=== PATIENT | male | born 1975 | race Caucasian/White ===

== ENCOUNTER 2024-01-28 15:27 | Outpatient (AMB) | payer OTHER, SELFPAY ==
[2024-01-28 15:36] VITALS: BP 152/102; PULSE 77; O2SAT 97; BMI 30.2
--- NOTE | 2024-01-28 15:36 | HO.NEPHOV ---
HPI HPI Comments History of Present Illness Details I had the privilege of seeing Hay in consultation for labile hypertension. He is known to have hypertension for well over 10 years. He has been on metoprolol for a while but his blood pressure remained uncontrolled and as a result hydrochlorothiazide was added. It did not make much of a difference needing increasing hydrochlorothiazide to 25 mg daily and addition of losartan 25 mg daily. His blood pressure continues to be over 150 to 160s systolic readings. His serum creatinine has been around 1.2-1.3. He had a 24 hour urine collection done in 2021 which revealed normal creatinine clearance. He has strong family history of hypertension. He denies using any cocaine. He does not have any coronary artery disease, congestive heart failure, carotid stenosis, CVA, PAD or RAFAELA. He has no history of retinopathy, proteinuria or left ventricular hypertrophy. He claims to be compliant with medication intake. He has not a smoker. He does not have any chest pain, headache, visual disturbances, shortness of breath, paroxysmal nocturnal dyspnea, orthopnea, pedal edema or urinary symptoms. He has no history of hypokalemia, uncontrolled thyroid disorders, obstructive sleep apnea, renal function abnormality, hypercalcemia. His weight has been stable. He has not taken any antihypertensive medications for the last 3 days. He has dyslipidemia and is on statins. He has elevated liver enzymes and is being investigated. He is concerned about his uncontrolled hypertension. [facility] Medical History (Updated 01/28/24 @ 21:17 by Reji Horner MD) Hypertension Colon polyps Elevated liver enzymes Surgical History H/O colonoscopy Social History Alcohol intake: current Patient Tobacco Use Status: Never used Tobacco Vital Signs 01/28/24 15:36 Height 5 ft 7 in Weight 193 lb BMI 30.2 BP 152/102 H Blood Pressure Location Lt brachial Position Sitting Pulse 77 Pulse Source Pulse Oximeter Pulse Oximetry (%) 97 Oxygen Delivery Method Room Air Physical Exam Vital Signs: Last Vital Signs Pulse 77 01/28/24 15:36 BP 152/102 H 01/28/24 15:36 Pulse Ox 97 01/28/24 15:36 Oxygen Delivery Method Room Air 01/28/24 15:36 BMI result Body Mass Index 30.2 Const General: comfortable and no acute distress Orientation/consciousness: patient oriented x3 HEENT Head: Yes normocephalic Mouth: Normal oral and palatal mucosa present Eyes EOM: EOMs intact bilaterally Neck Neck: Yes supple Resp Auscultation: clear to auscultation bilaterally Cardio Jugular venous distension: no JVD Rate: regular rate GI Palpation (GI): Soft to palpation Auscultation: normal bowel sounds General: Yes no CVA tenderness Back/Spine/Pelvis Back: no CVA tenderness Skin General skin exam: no rashes or lesions noted Neuro General: patient oriented x3 and moves all extremities Extrem General: Yes no pedal edema Assessment & Plan Assessment & Plan (1) Hypertension: Code(s): I10 - Essential (primary) hypertension Qualifiers: Hypertension type: primary hypertension Qualified Code(s): I10 - Essential (primary) hypertension Plan Hay most likely has primary hypertension. His blood pressure remains uncontrolled. He has not taken any medications for 3 days. His systolic readings have been running between 150-160. His serum creatinine has been between 1.2-1.3 with a normal creatinine clearance. I started him on losartan 50 mg daily. I ordered renin, aldosterone, aldosterone renin ratio, TSH, cortisol, metanephrine along with a Doppler of renal arteries. I encouraged him to cut back on his alcohol intake. He needs to minimize sodium in the diet. He could continue to do exercise. He should remain well hydrated. I encouraged him not to have excessive nonsteroidal anti-inflammatories while being on angiotensin receptor mckenzie. He is going to be seen in couple of weeks in the office for optimization of medications based on evolving data. Answered all questions. Follow-up appointment given. Orders: Orders Renin Today I10 - Essential (primary) hypertension Aldost/Renin Today I10 - Essential (primary) hypertension Metanephrines, Plasma Today I10 - Essential (primary) hypertension Cortisol Random Today I10 - Essential (primary) hypertension US renal BI Today I10 - Essential (primary) hypertension US renal doppler Today I10 - Essential (primary) hypertension Creatinine Today I10 - Essential (primary) hypertension Blood Urea Nitrogen Today I10 - Essential (primary) hypertension Electrolytes Today I10 - Essential (primary) hypertension Aldosterone Today I10 - Essential (primary) hypertension TSH reflex Free T4 Today I10 - Essential (primary) hypertension Medications: New losartan 50 mg PO DAILY 30 days 30 tabs 3RF Coding Level of Care Code New Pt Level 4 (49653) Diagnoses Primary hypertension I10 Hypertension type: primary hypertension Results Reviewed Nephrology Results: No Data to Display
== END 2024-01-28 16:21 | disposition home or self-care (01) ==
LOC: HO.HKAS 15:27
PROVIDERS: PCP Family Medicine; Visit Provider Internal Medicine Nephrology
DX: I10 Essential (primary) hypertension (principal)
CPT/HCPCS: 99204

== ENCOUNTER → 2024-01-28 15:27 | Outpatient (BNVA) | payer OTHER, SELFPAY | PROVIDERS: PCP Family Medicine; Visit Provider Internal Medicine Nephrology | DX: I10 Essential (primary) hypertension (principal) | CPT/HCPCS: 99202 ==

== ENCOUNTER 2024-02-11 10:34 | Outpatient (AMB) | payer OTHER, SELFPAY ==
--- NOTE | 2024-02-11 10:42 | HO.NEPHOV_ITS ---
HPI HPI Comments History of Present Illness Details I had the privilege of seeing Hay in consultation for labile hypertension. He is known to have hypertension for well over 10 years. He has been on metoprolol for a while but his blood pressure remained uncontrolled and as a result hydrochlorothiazide was added. It did not make much of a difference needing increasing hydrochlorothiazide to 25 mg daily and addition of losartan 25 mg daily. His blood pressure continues to be over 150 to 160s systolic readings. His serum creatinine has been around 1.2-1.3. He had a 24 hour urine collection done in 2021 which revealed normal creatinine clearance. He has strong family history of hypertension. He denies using any cocaine. He does not have any coronary artery disease, congestive heart failure, carotid stenosis, CVA, PAD or RAFAELA. He has no history of retinopathy, proteinuria or left ventricular hypertrophy. He claims to be compliant with medication intake. He has not a smoker. He does not have any chest pain, headache, visual disturbances, shortness of breath, paroxysmal nocturnal dyspnea, orthopnea, pedal edema or urinary symptoms. He has no history of hypokalemia, uncontrolled thyroid disorders, obstructive sleep apnea, renal function abnormality, hypercalcemia. His weight has been stable. He has not taken any antihypertensive medications for the last 3 days. He has dyslipidemia and is on statins. He has elevated liver enzymes and is being investigated. His BP is better after initiation of losartan. His A1c is 6.0 [facility] Medical History (Updated 01/28/24 @ 21:17 by Reji Horner MD) Hypertension Colon polyps Elevated liver enzymes Surgical History H/O colonoscopy Social History Alcohol intake: current Patient Tobacco Use Status: Never used Tobacco Vital Signs 02/11/24 10:43 Height 5 ft 7 in Weight 196 lb 2 oz BMI 30.7 BP 124/98 H Blood Pressure Location Lt brachial Position Sitting Pulse 72 Pulse Source Pulse Oximeter Pulse Oximetry (%) 97 Oxygen Delivery Method Room Air Physical Exam Vital Signs: Last Vital Signs Pulse 72 02/11/24 10:43 BP 124/98 H 02/11/24 10:43 Pulse Ox 97 02/11/24 10:43 Oxygen Delivery Method Room Air 04/04/24 10:43 BMI result Body Mass Index 30.7 Const General: comfortable and no acute distress Orientation/consciousness: patient oriented x3 HEENT Head: Yes normocephalic Mouth: Normal oral and palatal mucosa present Eyes EOM: EOMs intact bilaterally Neck Neck: Yes supple Resp Auscultation: clear to auscultation bilaterally Cardio Jugular venous distension: no JVD Rate: regular rate GI Palpation (GI): Soft to palpation Auscultation: normal bowel sounds General: Yes no CVA tenderness Back/Spine/Pelvis Back: no CVA tenderness Skin General skin exam: no rashes or lesions noted Neuro General: patient oriented x3 and moves all extremities Extrem General: Yes no pedal edema Assessment & Plan Assessment & Plan (1) Hypertension: Code(s): I10 - Essential (primary) hypertension Qualifiers: Hypertension type: primary hypertension Qualified Code(s): I10 - Essential (primary) hypertension Plan Hay most likely has primary hypertension. His blood pressure is well controlled after initiation of losartan .His serum creatinine has been between 1.2-1.3 with a normal creatinine clearance. He should continue losartan 50 mg daily. I ordered renin, aldosterone, aldosterone renin ratio, TSH, cortisol, metanephrine along with a Doppler of renal arteries. I encouraged him to cut back on his alcohol intake. He needs to minimize sodium in the diet. He could continue to do exercise. He should remain well hydrated. I encouraged him not to have excessive nonsteroidal anti-inflammatories while being on angiotensin receptor mckenzie. He is going to be seen in the office for optimization of medications based on evolving data. Answered all questions. Follow-up appointment given. Coding Level of Care Code Est Pt Level 4 (47822) Diagnoses Primary hypertension I10 Hypertension type: primary hypertension Results Reviewed Nephrology Results: No Data to Display
[2024-02-11 10:43] VITALS: BP 124/98; PULSE 72; O2SAT 97; BMI 30.7
== END 2024-02-11 11:10 | disposition home or self-care (01) ==
PROVIDERS: PCP Family Medicine; Visit Provider Internal Medicine Nephrology
DX: I10 Essential (primary) hypertension (principal)
CPT/HCPCS: 99214

== ENCOUNTER → 2024-02-11 10:34 | Outpatient (BNVA) | payer OTHER, SELFPAY | PROVIDERS: PCP Family Medicine; Visit Provider Internal Medicine Nephrology | DX: I10 Essential (primary) hypertension (principal) | CPT/HCPCS: 99212 ==

== ENCOUNTER 2024-06-03 10:00 | Outpatient (REF) | payer OTHER, SELFPAY ==
--- NOTE | ~2024-06-03 | US_ITS ---
EXAMINATION: ULTRASOUND RENAL WITH DOPPLER CLINICAL INFORMATION: Essential primary hypertension COMPARISON: None. TECHNIQUE: Real-time grayscale, color Doppler, and duplex Doppler evaluation of the kidneys and renal vasculature was performed. FINDINGS: RENAL MEASUREMENTS: Right: 10.4 x 5.9 x 5.2 cm (Sag x AP x TV) Left: 12.4 x 6.6 x 4.7 cm (Sag x AP x TV) The renal parenchyma appears normal. No hydronephrosis or nephrolithiasis. DOPPLER INTERROGATION: Aorta: 120 cm/sec Right Main Renal Artery: Proximal: 106 cm/sec Mid: 127 cm/sec Distal: 40 cm/sec Left Main Renal Artery: Proximal: 118 cm/sec Mid: 85 cm/sec Distal: 94 cm/sec Renal-Aortic Ratio (RAR): Right: Could not be calculated due to elevated aortic velocity. Left: Could not be calculated due to elevated aortic velocity. Segmental Resistive Indices: Right: Normal, less than 0.8 Left: Normal, less than 0.8 US/US renal BI IMPRESSION: No ultrasound evidence to suggest hemodynamically significant renal artery stenosis.
--- NOTE | ~2024-06-03 | US_ITS ---
EXAMINATION: ULTRASOUND RENAL WITH DOPPLER CLINICAL INFORMATION: Essential primary hypertension COMPARISON: None. TECHNIQUE: Real-time grayscale, color Doppler, and duplex Doppler evaluation of the kidneys and renal vasculature was performed. FINDINGS: RENAL MEASUREMENTS: Right: 10.4 x 5.9 x 5.2 cm (Sag x AP x TV) Left: 12.4 x 6.6 x 4.7 cm (Sag x AP x TV) The renal parenchyma appears normal. No hydronephrosis or nephrolithiasis. DOPPLER INTERROGATION: Aorta: 120 cm/sec Right Main Renal Artery: Proximal: 106 cm/sec Mid: 127 cm/sec Distal: 40 cm/sec Left Main Renal Artery: Proximal: 118 cm/sec Mid: 85 cm/sec Distal: 94 cm/sec Renal-Aortic Ratio (RAR): Right: Could not be calculated due to elevated aortic velocity. Left: Could not be calculated due to elevated aortic velocity. Segmental Resistive Indices: Right: Normal, less than 0.8 Left: Normal, less than 0.8 US/US renal doppler IMPRESSION: No ultrasound evidence to suggest hemodynamically significant renal artery stenosis.
[2024-06-03 11:31] LABS: Anion Gap 13 (12-20); Blood Urea Nitrogen 16 mg/dL (9-16); Carbon Dioxide 26 mmol/L (22-29); Chloride 105 mmol/L (96-108); Estimated Glomerular Filt Rate > 60; Potassium 4.2 mmol/L (3.3-5.1); Sodium 140 mmol/L (135-145)
[2024-06-03 11:42] LABS: Cortisol Random 15.7 ug/dL
[2024-06-10 00:04] LABS: Metanephrine, Free 30 pg/mL (<=57); Normetanephrines, Free 116 pg/mL (<=148); Total Metanephrine, Free 146 pg/mL (<=205)
[2024-06-11 17:04] LABS: Renin 12.26 ng/mL/h (0.25-5.82)
[2024-06-13 13:08] LABS: Aldosterone/Renin Ratio 0.4 Ratio (0.9-28.9); Plasma Renin Activity 12.32 ng/mL/h (0.25-5.82)
== END 2024-06-03 10:01 | disposition home or self-care (01) ==
LOC: HO.US 10:00
PROVIDERS: PCP Family Medicine; Visit Provider Internal Medicine Nephrology
DX: I10 Essential (primary) hypertension (principal)
CPT/HCPCS: 36415; 76775; 80051; 82088; 82533; 82565; 83835; 84244; 84443; 84520; 93975

== ENCOUNTER 2024-06-07 12:11 | Outpatient (AMB) | payer OTHER, SELFPAY ==
[2024-06-07 12:30] VITALS: BP 128/80; PULSE 67; O2SAT 97; BMI 30.2
--- NOTE | 2024-06-07 12:30 | HO.NEPHOV_ITS ---
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 He is known to have hypertension for well over 10 years. He has been on metoprolol for a while but his blood pressure remained uncontrolled and as a result hydrochlorothiazide was added. It did not make much of a difference needing increasing hydrochlorothiazide to 25 mg daily and addition of losartan 25 mg daily. His blood pressure continues to be over 150 to 160s systolic readings. His serum creatinine has been around 1.2-1.3. He had a 24 hour urine collection done in 2021 which revealed normal creatinine clearance. He has strong family history of hypertension. He denies using any cocaine. He does not have any coronary artery disease, congestive heart failure, carotid stenosis, CVA, PAD or RAFAELA. He has no history of retinopathy, proteinuria or left ventricular hypertrophy. He claims to be compliant with medication intake. He has not a smoker. He does not have any chest pain, headache, visual disturbances, shortness of breath, paroxysmal nocturnal dyspnea, orthopnea, pedal edema or urinary symptoms. He has no history of hypokalemia, uncontrolled thyroid disorders, obstructive sleep apnea, renal function abnormality, hypercalcemia. His weight has been stable. He has dyslipidemia and is on statins. He has elevated liver enzymes and is being investigated. His BP is better after initiation of losartan. His A1c is 6.0 [facility] Medical History (Updated 01/28/24 @ 21:17 by Reji Horner MD) Hypertension Colon polyps Elevated liver enzymes Surgical History H/O colonoscopy Social History Alcohol intake: current Patient Tobacco Use Status: Never used Tobacco Physical Exam Vital Signs: Last Vital Signs Pulse 67 06/07/24 12:30 BP 124/90 H 07/30/24 12:30 Pulse Ox 97 06/07/24 12:30 Oxygen Delivery Method Room Air 06/07/24 12:30 BMI result Body Mass Index 30.2 Const General: comfortable and no acute distress Orientation/consciousness: patient oriented x3 HEENT Head: Yes normocephalic Mouth: Normal oral and palatal mucosa present Eyes EOM: EOMs intact bilaterally Neck Neck: Yes supple Resp Auscultation: clear to auscultation bilaterally Cardio Jugular venous distension: no JVD Rate: regular rate GI Palpation (GI): Soft to palpation Auscultation: normal bowel sounds General: Yes no CVA tenderness Back/Spine/Pelvis Back: no CVA tenderness Skin General skin exam: no rashes or lesions noted Neuro General: patient oriented x3 and moves all extremities Extrem General: Yes no pedal edema Results Reviewed Nephrology Results: Sodium 140 mmol/L (135-145) 06/03/24 Potassium 4.2 mmol/L (3.3-5.1) 06/03/24 Chloride 105 mmol/L (96-108) 06/03/24 Carbon Dioxide 26 mmol/L (22-29) 06/03/24 BUN 16 mg/dL (9-16) 06/03/24 Creatinine 1.20 mg/dL (0.5-1.4) 06/03/24 Renal US 06/03/24 Assessment & Plan Assessment & Plan (1) Hypertension: Code(s): I10 - Essential (primary) hypertension Category: Medical Qualifiers: Hypertension type: primary hypertension Qualified Code(s): I10 - Essential (primary) hypertension Plan Hay most likely has primary hypertension. His blood pressure is well controlled after initiation of losartan .His serum creatinine has been between 1.2-1.3 with a normal creatinine clearance. He should continue losartan 50 mg daily. Doppler of renal arteries were normal. I encouraged him to cut back on his alcohol intake. He needs to minimize sodium in the diet. He could continue to do exercise. He should remain well hydrated. I encouraged him not to have excessive nonsteroidal anti-inflammatories while being on angiotensin receptor mckenzie. Answered all questions. Follow-up appointment given Orders: Orders Blood Urea Nitrogen Today I10 - Essential (primary) hypertension Creatinine Today I10 - Essential (primary) hypertension Electrolytes Today I10 - Essential (primary) hypertension Coding Level of Care Code Est Pt Level 4 (45825) Diagnoses Primary hypertension I10 Hypertension type: primary hypertension
== END 2024-06-07 12:51 | disposition home or self-care (01) ==
PROVIDERS: PCP Family Medicine; Visit Provider Internal Medicine Nephrology
DX: I10 Essential (primary) hypertension (principal)
CPT/HCPCS: 99214

== ENCOUNTER → 2024-06-07 12:11 | Outpatient (BNVA) | payer OTHER, SELFPAY | PROVIDERS: PCP Family Medicine; Visit Provider Internal Medicine Nephrology | DX: I11.0 Hypertensive heart disease with heart failure (principal); I50.9 Heart failure, unspecified; I25.10 Atherosclerotic heart disease of native coronary artery without angina pectoris | CPT/HCPCS: 99212 ==

== ENCOUNTER 2024-11-15 15:43 | Outpatient (AMB) | payer OTHER, SELFPAY ==
--- NOTE | 2024-11-15 15:51 | HO.NEPHOV ---
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 He is known to have hypertension for well over 10 years. He has been on metoprolol for a while but his blood pressure remained uncontrolled and as a result hydrochlorothiazide was added. It did not make much of a difference needing increasing hydrochlorothiazide to 25 mg daily and addition of losartan 25 mg daily. His blood pressure continues to be over 150 to 160s systolic readings. His serum creatinine has been around 1.2-1.3. He had a 24 hour urine collection done in 2021 which revealed normal creatinine clearance. He has strong family history of hypertension. He denies using any cocaine. He does not have any coronary artery disease, congestive heart failure, carotid stenosis, CVA, PAD or RAFAELA. He has no history of retinopathy, proteinuria or left ventricular hypertrophy. He claims to be compliant with medication intake. He has not a smoker. He does not have any chest pain, headache, visual disturbances, shortness of breath, paroxysmal nocturnal dyspnea, orthopnea, pedal edema or urinary symptoms. He has no history of hypokalemia, uncontrolled thyroid disorders, obstructive sleep apnea, renal function abnormality, hypercalcemia. His weight has been stable. He has dyslipidemia and is on statins. He had elevated liver enzymes and is being investigated. He had gout flare up and was treated .His A1c is 6.0 [facility] Medical History (Updated 11/15/24 @ 16:11 by Reji Horner MD) Hypertension Colon polyps Elevated liver enzymes Surgical History H/O colonoscopy Social History Alcohol intake: current Patient Tobacco Use Status: Never used Tobacco Review of Systems Const All systems reviewed & are unremarkable except as noted in HPI and below Physical Exam Vital Signs: Last Vital Signs BP 138/100 H 11/15/24 15:53 BMI result Body Mass Index 31.3 Const General: comfortable and no acute distress Orientation/consciousness: patient oriented x3 HEENT Head: Yes normocephalic Mouth: Normal oral and palatal mucosa present Eyes EOM: EOMs intact bilaterally Neck Neck: Yes supple Resp Auscultation: clear to auscultation bilaterally Cardio Jugular venous distension: no JVD Rate: regular rate GI Palpation (GI): Soft to palpation Auscultation: normal bowel sounds General: Yes no CVA tenderness Back/Spine/Pelvis Back: no CVA tenderness Skin General skin exam: no rashes or lesions noted Neuro General: patient oriented x3 and moves all extremities Extrem General: Yes no pedal edema Assessment & Plan Assessment & Plan (1) Hypertension: Code(s): I10 - Essential (primary) hypertension Category: Medical Qualifiers: Hypertension type: primary hypertension Qualified Code(s): I10 - Essential (primary) hypertension (2) Gout: Code(s): M10.9 - Gout, unspecified Category: Medical Qualifiers: Gout etiology: unspecified cause Gout site: foot Chronicity: acute Laterality: right Qualified Code(s): M10.9 - Gout, unspecified Plan Hay most likely has primary hypertension. His blood pressure is not well controlled . I increased his losartan to 75 mg daily .His serum creatinine has been between 1.2-1.3 with a normal creatinine clearance. Doppler of renal arteries were normal. I encouraged him to cut back on his alcohol intake. He needs to minimize sodium in the diet. He could continue to do exercise. He should remain well hydrated. I encouraged him not to have excessive nonsteroidal anti-inflammatories while being on angiotensin receptor mckenzie. I suggested him to be on Allopurinol 100 mg daily which he is going to discuss with PCP this Thursday. Coding Level of Care Code Est Pt Level 4 (69787) Diagnoses Primary hypertension I10 Hypertension type: primary hypertension Acute gout of right foot, unspecified cause M10.9 Gout etiology: unspecified cause Gout site: foot Chronicity: acute Laterality: right
[2024-11-15 15:53] VITALS: BP 138/100; BMI 31.3
== END 2024-11-15 16:18 | disposition home or self-care (01) ==
PROVIDERS: PCP Family Medicine; Visit Provider Internal Medicine Nephrology
DX: I10 Essential (primary) hypertension (principal); M10.9 Gout, unspecified
CPT/HCPCS: 99214

== ENCOUNTER → 2024-11-15 15:43 | Outpatient (BNVA) | payer OTHER, SELFPAY | PROVIDERS: PCP Family Medicine; Visit Provider Internal Medicine Nephrology | DX: I10 Essential (primary) hypertension (principal); M10.071 Idiopathic gout, right ankle and foot | CPT/HCPCS: 99212 ==

== ENCOUNTER 2025-03-07 11:41 | Outpatient (AMB) | payer OTHER, SELFPAY ==
--- NOTE | 2025-03-07 12:02 | HO.NEPHOV_ITS ---
Vital Signs 03/07/25 12:05 Height 5 ft 7 in Weight 192 lb 6 oz BMI 30.1 BP 122/80 Blood Pressure Location Lt brachial Position Sitting Pulse 72 Pulse Source Pulse Oximeter Pulse Oximetry (%) 96 Oxygen Delivery Method Room Air Intake Visit Reasons: Follow Up 3mo-LVM Scroll Saw Operator Required: No Accompanied by: Self / Same As Patient Allergies Penicillins Allergy (Verified 03/07/25 12:05) Unknown HPI Comments Details: Hay was seen today in follow up for hypertension. He is known to have hypertension for well over 10 years. He has been on metoprolol for a while but his blood pressure remained uncontrolled and as a result hydrochlorothiazide was added. It did not make much of a difference needing increasing hydrochlorothiazide to 25 mg daily and addition of losartan 25 mg daily. His blood pressure continues to be over 150 to 160s systolic readings. His serum cr eatinine has been around 1.2-1.3. He had a 24 hour urine collection done in 2021 which revealed normal creatinine clearance. He has strong family history of hypertension. He denies using any cocaine. He does not have any coronary artery disease, congestive heart failure, carotid stenosis, CVA, PAD or RAFAELA. He has no history of retinopathy, proteinuria or left ventricular hypertrophy. He claims to be compliant with medication intake. He has not a smoker. He does not have any chest pain, headache, visual disturbances, shortness of breath, paroxysmal nocturnal dyspnea, orthopnea, pedal edema or urinary symptoms. He has no history of hypokalemia, uncontrolled thyroid disorders, obstructive sleep apnea, renal function abnormality, hypercalcemia. His weight has been stable. He has dyslipidemia and is on statins. He had elevated liver enzymes and is being investigated. He had gout flares and is on Allopurinol . [facility] Medical History (Updated 11/15/24 @ 16:11 by Reji Horner MD) Hypertension Colon polyps Elevated liver enzymes Surgical History H/O colonoscopy Social History Alcohol intake: current Patient Tobacco Use Status: Never used Tobacco Review of Systems Const All systems reviewed & are unremarkable except as noted in HPI and below Physical Exam Vital Signs: Last Vital Signs Pulse 72 03/07/25 12:05 BP 122/80 03/07/25 12:05 Pulse Ox 96 03/07/25 12:05 Oxygen Delivery Method Room Air 03/07/25 12:05 BMI result Body Mass Index 30.1 Const General: comfortable and no acute distress Orientation/consciousness: patient oriented x3 HEENT Head: Yes normocephalic Mouth: Normal oral and palatal mucosa present Eyes EOM: EOMs intact bilaterally Neck Neck: Yes supple Resp Auscultation: clear to auscultation bilaterally Cardio Jugular venous distension: no JVD Rate: regular rate GI Palpation (GI): Soft to palpation Auscultation: normal bowel sounds General: Yes no CVA tenderness Back/Spine/Pelvis Back: no CVA tenderness Skin General skin exam: no rashes or lesions noted Neuro General: patient oriented x3 and moves all extremities Extrem General: Yes no pedal edema Assessment & Plan Assessment & Plan (1) Hypertension: Code(s): I10 - Essential (primary) hypertension Category: Medical Qualifiers: Hypertension type: primary hypertension Qualified Code(s): I10 - Essential (primary) hypertension (2) Gout: Code(s): M10.9 - Gout, unspecified Category: Medical Qualifiers: Gout site: foot Gout etiology: unspecified cause Chronicity: acute Laterality: right Qualified Code(s): M10.9 - Gout, unspecified Plan Hay most likely has primary hypertension. His blood pressure is well controlled now on current medications . I increased his losartan to 75 mg at the last visit which has increased his serum creatinine. Whether his rise in serum creatinine is due to increase in muscle mass along with hemodynamics MALINI when losartan has been increased needs to be determined. ( At baseline his serum creatinine has been between 1.2-1.3 with a normal creatinine clearance). Doppler of renal arteries were normal. He should remain well hydrated. I encouraged him not to have excessive nonsteroidal anti-inflammatories while being on angiotensin receptor mckenzie. His renal function is going to be repeated soon. F/U 3 months Orders: Orders Electrolytes 3 Months I10 - Essential (primary) hypertension Creatinine 3 Months I10 - Essential (primary) hypertension Blood Urea Nitrogen 3 Months I10 - Essential (primary) hypertension Coding Level of Care Code Est Pt Level 4 (67888) Diagnoses Primary hypertension I10 Hypertension type: primary hypertension Acute gout of right foot, unspecified cause M10.9 Gout site: foot Gout etiology: unspecified cause Chronicity: acute Laterality: right
[2025-03-07 12:05] VITALS: BP 122/80; PULSE 72; O2SAT 96; BMI 30.1
--- OUTSIDE RECORDS SUMMARY | 2025-03-07 13:53 | XMS_ITS | Encounter Summary ---
Author Organization [employer] Address [address] [facility] [address] [place] [address] Care Team Providers Care Roll Mechanic Name Role Phone Unavailable Primary Care Provider Unavailabl e Reason for Visit * Reason Comments Filling Filling tooth 8 and denture impression Encounter Details Date Type Department Care Team (Late st Contact Info) Description 03/07/2025 10:30 AM EDT Office Visit [facility] ADULT DENTAL [address] [place] [address] Meri Choudhury DDS [address] [place] [address] Open fracture of tooth, sequela (Primary Dx) Social History Tobacco Use Types Packs/Day Years Used Date Smoking Tobacco: Former Cigarettes Passive Smoke Exposure: Never Smokeless Tobacco: Former Alcohol Use Standard Drinks/Week Comments Defer 0 (1 standard drink = 0.6 oz pur e alcohol) Sex and Gender Information Value Date Recorded Sex Assigned at Male 11/21/2022 1:02 PM EST Legal Sex Male 1:01 PM EST Gender Identity Male 11/21/2022 1:02 PM EST Sexual Orientation Choose not to disclose 2022 1:02 PM EST documented as of this encounter Last Filed Vital Signs Vital Sign Reading Time Taken Comments Blood Pressure 146/82 03/07/2025 10:42 AM EDT Pulse - - Temperature - - Respiratory Rate - - Oxygen Saturation - - Inhaled Oxygen Concentration - - Weight - - Height - - Body Mass Index - - documented in this encounter Progress Notes * Meri Choudhury DDS - 03/07/2025 10:30 AM EDT Patient ID: Hay Driscoll is a 49 y.o. male. Time Out: Timeout Date: 03/07/25, Timeout Time: 1041 (filling tooth 8) Location: [facility] Tooth: #8 Procedure: Druze Verified the above with patient, ophthalmic medical assistant, and provider. Confirmed via patient's chart, intraorally and by radiographs. Laminating Machine Tender: not applicable Chief Complaint Patient presents with Filling Filling tooth 8 and denture impression Medical Hx: Vitals: Blood pressure (!) 146/82. Medications, Med Hx reviewed with patient and updated in chart. Consent Obtained: The risks, benefits, indications, potential complications, and alternatives were explained to the patient and informed consent was obtained with good understanding. Treatment Provided: Dental procedures in this visit D2335 - RESIN-BASED COMPOSITE - 4 OR MORE SURFACES (ANTERIOR) 8 MIFL (Completed) Service provider: Meri Choudhury DDS Billing provider: Meri Choudhury DDS [id number] - CASE PRESENTATION, DETAILED AND EXTENSIVE TREATMENT PLANNING (Completed) Service provider: Meri Choudhury DDS Billing provider: Meri Choudhury DDS Diagnosis: fracture tooth #8 MLF Topical: 20% Benzocaine Anesthesia: 2% Lidocaine (Xylocaine) w/ 1:100,000 epinephrine Number of Cartridges: 1 Injection Type: Buccal infiltration and Anterior superior alveolar nerve block Confirmed profound anesthesia. Isolation: high speed suction and cotton rolls Prep: Preparation finalized Matrix: Mylar Strip and wedge Etch: 37% Phosphoric Acid Etch Desensitizer: Gluma Liner/Base: None Chaney: I-Chaney Druze Material: Paradigm Composite Shade: A3 Polished. Occlusion & contacts verified. Patient satisfied with comfort and esthetics. Patient tolerated procedure well. Post-operative instructions were given. Patient departed alert, oriented, and in stable condition. NV: Impression [employer] Line Rider: SHERRELL Armenta Dentist: Meri Choudhury DDS documented in this encounter Plan of Treatment Upcoming Encounters Date Type Department Care Team (Late st Contact Info) Description 08/08/2025 3:00 PM EDT Office Visit [facility] ADULT DENTAL [address] [place] [address] Nevaeh Joy documented as of this encounter Procedures Procedure Name Priority Date/Time Associated Diagnosis Comments 8 MIFL RESIN-BASED COMPOSITE - 4 OR MORE SURFACES (ANTERIOR) Routine 03/07/2025 10:30 AM EDT Open fracture of tooth, sequela CASE PRESENTATION, DETAILED AND EXTENSIVE TREATMENT PLANNING Routine 03/07/2025 10:30 AM EDT Open fracture of tooth, sequela documented in this encounter Visit Diagnoses Diagnosis Open fracture of tooth, sequela- Primary documented in this encounter
--- OUTSIDE RECORDS SUMMARY | 2025-03-07 13:53 | XMS_ITS | Encounter Summary ---
Author Organization [facility] Address [address] [place] [address] Phone Care Team Providers Care Senior Solutions Consultant Name Role Phone Kadeem Mendoza DO Primary Care Provider [phone] Encounter Details Date Type Department Care Team (Late st Contact Info) Description 06/30/2022 Documentation Only [facility] [address] [place] [address] Julio Barnes MD Social History Tobacco Use Types Packs/Day Years Used Date Smoking Tobacco: Never Smokeless Tobacco: Current Alcohol Use Standard Drinks/Week Comments Yes 0 (1 standard drink = 0.6 oz pur e alcohol) 1-2 times per wk(liquior) Sex and Gender Information Value Date Recorded Sex Assigned at Not on file Legal Sex Male 10:12 AM EDT Gender Identity Not on file Sexual Orientation Not on file COVID-19 Exposure Response Date Recorded In the last 10 days, have yo u been in contact with someone who was confirmed or suspected to have Coronavirus/COVID-19? Unable to assess 07/03/2022 8:49 AM EDT documented as of this encounter Plan of Treatment Not on file documented as of this encounter Visit Diagnoses Not on filedocumented in this encounter Care Teams Senior Solutions Consultant Relationship Specialty Start Date End Date Kadeem Mendoza DO [address] [place] [address] PCP - General Family Medicine 01/01/24 documented as of this encounter
--- OUTSIDE RECORDS SUMMARY | 2025-03-07 13:53 | XMS_ITS | Clinical Summary ---
Author Organization [employer] Address [address] [facility] [address] [place] [address] Care Team Providers Care Cleat Thrower Name Role Phone Unavailable Primary Care Provider Unavailabl e Allergies Active Allergy Reactions Criticality Noted Date Comments Penicillin G Hives 04/18/2024 Medications acetaminophen (Tylenol) 500 MG tablet Take 1 tablet (500 mg) by mouth every 6 (six) hours if needed for mild pain for up to 20 doses. 20 tablet 4 Active Additional Information Patient not taking.Reported on 03/07/2025 ibuprofen 600 MG tablet Take 1 tablet (600 mg) by mouth every 6 (six) hours if needed for mild pain for up to 20 doses. 20 tablet 4 Active amLODIPine (Norvasc) 10 MG tablet Take 10 mg by mouth Once per day. Active losartan (Cozaar) 25 MG tablet Take 25 mg by mouth Once per day. Active rosuvastatin (Crestor) 20 MG tablet Take 20 mg by mouth Once per day. Active losartan (Cozaar) 50 MG tablet Take 1 tablet by mouth Once per day. 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 Non-restorable tooth 04/18/2024 Encounters Date Type Department Care Team Description 03/07/2025 10:30 AM EDT Office Visit [facility] ADULT DENTAL [address] [place] [address] Moore-Cole, Meri, DDS Open fracture of tooth, sequela (Primary Dx) 01/31/2025 1:00 PM EDT Office Visit [facility] ADULT DENTAL [address] [place] [address] Rufino Nevaeh Dental calculus (Primary Dx); Dental plaque; Encounter for dental examination 12/16/2024 1:30 PM EST Office Visit [facility] ADULT DENTAL [address] [place] [address] Meri Choudhury DDS Dental caries (Primary Dx); Gingival recession, localized from Last 3 Months Social History Tobacco Use Types Packs/Day Years Used Date Smoking Tobacco: Former Cigarettes Passive Smoke Exposure: Never Smokeless Tobacco: Former Tobacco Cessation:Counseling Given: No Alcohol Use Standard Drinks/Week Comments Defer 0 (1 standard drink = 0.6 oz pur e alcohol) Sex and Gender Information Value Date Recorded Sex Assigned at Male 11/21/2022 1:02 PM EST Legal Sex Male 1:01 PM EST Gender Identity Male 11/21/2022 1:02 PM EST Sexual Orientation Choose not to disclose 2022 1:02 PM EST Last Filed Vital Signs Vital Sign Reading Time Taken Comments Blood Pressure 146/82 03/07/2025 10:42 AM EDT Pulse 76 05/09/2024 8:28 AM EDT Temperature - - Respiratory Rate - - Oxygen Saturation - - Inhaled Oxygen Concentration - - Weight - - Height - - Body Mass Index - - Plan of Treatment Upcoming Encounters Date Type Department Care Team (Late st Contact Info) Description 08/08/2025 3:00 PM EDT Office Visit [facility] ADULT DENTAL [address] [place] [address] Nevaeh Joy Health Maintenance Due Date Last Done Comments Anal Pap 1973 CT Colonography 1973 Colonoscopy 1973 Colorectal Cancer Screening 1973 Depression Screening 1973 FIT DNA/Cologuard 1973 FIT 1973 FOBT 1973 HIV Screening 1973 Lipid Panel 1973 SDOH Screening 1973 Sigmoidoscopy 1973 Hepatitis B Vaccines (2 of 3 - 3-dose series) 1973 1973 Alcohol/Substance Use Screening 1985 Family Planning (PISQ) 1988 Hepatitis C Screening 1991 DTaP/Tdap/Td Vaccines (1 - Tdap) 1992 Hepatitis A Vaccines (1 of 2 - Risk 2-dose series) 1992 Pneumococcal Vaccine: 50+ Years (1 of 1 - PCV) 2023 Zoster Vaccines (1 of 2) 2023 COVID-19 Vaccine (1 - 2023-2 5 season) 2024 Influenza Vaccine (#1) 2024 Dental X-Ray: Bitewings 07/27/2025 07/26/2024 Dental Oral Exam 08/04/2025 01/31/2025, 07/26/2024 Dental Prophylaxis 08/04/2025 01/31/2025, 07/26/2024 Tobacco Screening 03/07/2026 03/07/2025 Dental X-Ray: Full Mouth 07/27/2027 07/26/2024 RSV Patients and Patients Aged 60 years or older (1 - 1-dose 75+ series) 2048 HIB Vaccines Aged Out No longer eligi ble based on patient's age to complete this topic HPV Vaccines Aged Out No longer eligi ble based on patient's age to complete this topic IPV Vaccines Aged Out No longer eligi ble based on patient's age to complete this topic Meningococcal Vaccine Aged Out No bacilio alaina eligible based on patient's age to complete this topic RSV under 20 months Aged Out No longe r eligible based on patient's age to complete this topic Rotavirus Vaccines Aged Out No longer eligible based on patient's age to complete this topic Procedures Procedure Name Priority Date/Time Associated Diagnosis Comments CASE PRESENTATION, DETAILED AND EXTENSIVE TREATMENT PLANNING Routine 03/07/2025 10:30 AM EDT Open fracture of tooth, sequela 8 MIFL RESIN-BASED COMPOSITE - 4 OR MORE SURFACES (ANTERIOR) Routine 03/07/2025 10:30 AM EDT Open fracture of tooth, sequela COMPREHENSIVE PERIODONTAL EVALUATION - NEW OR ESTABLISHED PATIENT Routine 01/31/2025 1:00 PM EDT Dental calculus Dental plaque Encounter for dental examination PERIODIC ORAL EVALUATION - ESTABLISHED PATIENT Routine 01/31/2025 1:00 PM EDT Dental calculus Dental plaque Encounter for dental examination INTRAORAL - PERIAPICAL FIRST RADIOGRAPHIC IMAGE Routine 01/31/2025 1:00 PM EDT ORAL HYGIENE INSTRUCTIONS Routine 2024 1:00 PM EDT Dental calculus Dental plaque CASE PRESENTATION, DETAILED AND EXTENSIVE TREATMENT PLANNING Routine 01/31/2025 1:00 PM EDT PROPHYLAXIS - ADULT Routine 01/31/2025 1 :00 PM EDT Dental calculus Dental plaque CASE PRESENTATION, DETAILED AND EXTENSIVE TREATMENT PLANNING Routine 12/16/2024 1:30 PM EST Dental caries Gingival recession, localized 2 M RESIN-BASED COMPOSITE - 1 SURF, POSTERIOR Routine 12/16/2024 1:30 PM EST Dental caries Gingival recession, localized 27 F(V) RESIN-BASED COMPOSITE - 1 SURF, ANTERIOR Routine 12/16/2024 1:30 PM EST Dental caries Gingival recession, localized INTRAORAL - COMPLETE SERIES OF RADIOGRAPHIC IMAGES Routine 07/26/2024 2:00 PM EDT from Last 3 Months or Most Recently Relevant to Health Maintenance Insurance [facility] MEDICAID STAND ADULT
--- OUTSIDE RECORDS SUMMARY | 2025-03-07 13:53 | XMS_ITS | Clinical Summary ---
Author Organization [facility] Address [address] [facility] [address] [place] [address] Phone Care Team Providers Care Wind Field Manager Name Role Phone Mendoza, Gary Dasia BANGURA Primary Care Provider [phone] Allergies Active Allergy Reactions Criticality Noted Date Comments Penicillin G 06/04/2022 Medications amLODIPine (NORVASC) 10 MG tablet Take 10 mg by mouth 1 (one) time each day Active hydroCHLOROthiaz vickie 12.5 MG tablet Take 12.5 mg by mouth 1 (one) time each day Active metoprolol succinate XL (TOPROL XL) 50 MG 24 hr tablet Take 50 mg by mouth 1 (one) time each day Do not crush or chew. Active rosuvastatin (CRESTOR) 20 MG tablet Take 20 mg by mouth 1 (one) time each day Active Active Problems No known active problems Social History Tobacco Use Types Packs/Day Years Used Date Smoking Tobacco: Never Smokeless Tobacco: Current Tobacco Cessation:Ready to Q uit: Not Asked; Counseling Given: Not Answered Alcohol Use Standard Drinks/Week Comments Yes 0 (1 standard drink = 0.6 oz pur e alcohol) 1-2 times per wk(liquior) Sex and Gender Information Value Date Recorded Sex Assigned at Not on file Legal Sex Male 10:12 AM EDT Gender Identity Not on file Sexual Orientation Not on file Last Filed Vital Signs Vital Sign Reading Time Taken Comments Blood Pressure 134/94 06/05/2022 3:04 PM EDT Pulse 78 06/05/2022 3:04 PM EDT Temperature - - Respiratory Rate - - Oxygen Saturation 94% 06/05/2022 3:04 PM EDT Inhaled Oxygen Concentration - - Weight 88.5 kg (195 lb) 06/05/2022 3:04 PM EDT Height - - Body Mass Index - - Plan of Treatment Health Maintenance Due Date Last Done Comments Hepatitis B Vaccine (1 of 3 - 19+ 3-dose series) 04/24 Pneumococcal Vaccine: 50+ Years (1 of 2 - PCV) 992 Colorectal Cancer Screening: Annual FOBT 2022 Colorectal Cancer Screening: Colonoscopy 2022 Colorectal Cancer Screening: Sigmoidoscopy 2022 Influenza Vaccine (Season Ended) 2025 Insurance [facility] Medicaid [employer] Medicaid Care Teams Wind Field Manager Relationship Specialty Start Date End Date Kadeem Mendoza DO [address] [place] [address] PCP - General Family Medicine 01/01/24
== END 2025-03-07 12:32 | disposition home or self-care (01) ==
LOC: HO.HKAS 11:42
PROVIDERS: PCP Family Medicine; Visit Provider Internal Medicine Nephrology
DX: I10 Essential (primary) hypertension (principal); M10.9 Gout, unspecified
CPT/HCPCS: 99214

== ENCOUNTER → 2025-03-07 11:41 | Outpatient (BNVA) | payer OTHER, SELFPAY | PROVIDERS: PCP Family Medicine; Visit Provider Internal Medicine Nephrology | DX: M10.9 Gout, unspecified (principal); I10 Essential (primary) hypertension | CPT/HCPCS: 99212 ==

== ENCOUNTER 2025-06-06 11:48 | Outpatient (AMB) | payer OTHER, SELFPAY ==
--- NOTE | 2025-06-06 11:54 | HO.NEPHOV_ITS ---
Vital Signs 06/06/25 11:56 Height 5 ft 7 in Weight 190 lb BMI 29.8 BP 140/100 H Blood Pressure Location Lt brachial Position Sitting Pulse 91 Pulse Source Pulse Oximeter Pulse Oximetry (%) 95 Oxygen Delivery Method Room Air Intake Visit Reasons: Follow Up 3mo-LVM Reaming Press Operator Required: No Accompanied by: Self / Same As Patient Allergies Penicillins Allergy (Verified 06/06/25 11:56) Unknown HPI Comments Details: Hay was seen today in follow up for hypertension. He is known to have hypertension for well over 10 years. He has been on metoprolol for a while but his blood pressure remained uncontrolled and as a result hydrochlorothiazide was added. It did not make much of a difference needing increasing hydrochlorothiazide to 25 mg daily and addition of losartan 25 mg daily. His blood pressure continues to be over 150 to 160s systolic readings. His serum creatinine has been around 1.2-1.3. He had a 24 hour urine collection done in 2021 which revealed normal creatinine clearance. He has strong family history of hypertension. He denies using any cocaine. He does not have any coronary artery disease, congestive heart failure, carotid stenosis, CVA, PAD or RAFAELA. He has no history of retinopathy, proteinuria or left ventricular hypertrophy. He claims to be compliant with medication intake. He has not a smoker. He does not have any chest pain, headache, visual disturbances, shortness of breath, paroxysmal nocturnal dyspnea, orthopnea, pedal edema or urinary symptoms. He has no history of hypokalemia, uncontrolled thyroid disorders, obstructive sleep apnea, renal function abnormality, hypercalcemia. His weight has been stable. He has dyslipidemia and is on statins. He had gout flares after he ran out of Allopurinol. His BP is better controlled but still not at goal [facility] Medical History (Updated 11/15/24 @ 16:11 by Reji Horner MD) Hypertension Colon polyps Elevated liver enzymes Surgical History H/O colonoscopy Social History Alcohol intake: current Patient Tobacco Use Status: Never used Tobacco Review of Systems Const All systems reviewed & are unremarkable except as noted in HPI and below Physical Exam Vital Signs: Last Vital Signs Pulse 91 06/06/25 11:56 BP 140/100 H 06/06/25 11:56 Pulse Ox 95 06/06/25 11:56 Oxygen Delivery Method Room Air 06/06/25 11:56 BMI result Body Mass Index 29.8 Const General: comfortable and no acute distress Orientation/consciousness: patient oriented x3 HEENT Head: Yes normocephalic Mouth: Normal oral and palatal mucosa present Eyes EOM: EOMs intact bilaterally Neck Neck: Yes supple Resp Auscultation: clear to auscultation bilaterally Cardio Jugular venous distension: no JVD Rate: regular rate GI Palpation (GI): Soft to palpation Auscultation: normal bowel sounds General: Yes no CVA tenderness Back/Spine/Pelvis Back: no CVA tenderness Skin General skin exam: no rashes or lesions noted Neuro General: patient oriented x3 and moves all extremities Extrem General: Yes no pedal edema Results Reviewed Nephrology Results: Sodium, (135-145) 140 mmol/L 06/03/24 Potassium, (3.3-5.1) 4.2 mmol/L 06/03/24 Chloride, (96-108) 105 mmol/L 06/03/24 Carbon Dioxide, (22-29) 26 mmol/L 06/03/24 BUN, (9-16) 16 mg/dL 06/03/24 Creatinine, (0.5-1.4) 1.20 mg/dL 06/03/24 Renal US 06/03/24 Assessment & Plan Assessment & Plan (1) Hypertension: Code(s): I10 - Essential (primary) hypertension Category: Medical Qualifiers: Hypertension type: primary hypertension Qualified Code(s): I10 - Essential (primary) hypertension Plan Hay most likely has primary hypertension. His blood pressure is not well controlled now on current medications . I increased his losartan to 75 mg today. Whether his fluctuant serum creatinine is due to increase in muscle mass along with hemodynamic MALINI when losartan has been increased needs to be determined. ( At baseline his serum creatinine has been between 1.2-1.3 with a normal creatinine clearance). Doppler of renal arteries were normal. He should remain well hydrated. I encouraged him not to have excessive nonsteroidal anti- inflammatories while being on angiotensin receptor mckenzie. His renal function is going to be repeated soon. Allopurinol and Gout were refilled. F/U given Orders: Orders Creatinine 2 Months I10 - Essential (primary) hypertension Electrolytes 2 Months I10 - Essential (primary) hypertension Blood Urea Nitrogen 2 Months I10 - Essential (primary) hypertension Medications: New allopurinol 100 mg PO DAILY 90 tabs 4RF colchicine 0.6 mg PO DAILY 90 tabs 0RF Changed From losartan 50 mg PO DAILY 90 tabs 4RF To losartan 75 mg (1.5 x 50 mg) PO DAILY 135 tabs 4RF 90 days Coding Level of Care Code Est Pt Level 4 (19966) Diagnoses Primary hypertension I10 Hypertension type: primary hypertension
[2025-06-06 11:56] VITALS: BP 140/100; PULSE 91; O2SAT 95; BMI 29.8
--- OUTSIDE RECORDS SUMMARY | 2025-06-06 12:49 | XMS_ITS | Encounter Summary ---
Author Organization [facility] Address [address] [place] [address] Phone Care Team Providers Care Central Supply Manager Name Role Phone Kadeem Mendoza DO Primary Care Provider [phone] Encounter Details Date Type Department Care Team (Late st Contact Info) Description 06/30/2022 Documentation Only [facility] [address] [place] [address] Julio Barnes MD Social History [...] on filedocumented in this encounter Care Teams Central Supply Manager Relationship Specialty Start Date End Date Kadeem Mendoza DO [address] [place] [address] PCP - General Family Medicine 01/01/24 documented as of this encounter
--- OUTSIDE RECORDS SUMMARY | 2025-06-06 12:50 | XMS_ITS | Clinical Summary ---
Author Organization [employer] Address [address] [facility] 7t [place] [address] Care Team Providers Care Assistant Professor Of Marine Biology Name Role Phone Unavailable Primary Care Provider [...] 10:30 AM EDT Office Visit [facility] ADULT DENTAL [address] [place] [address] Moore-Cole, Meri, DDS Open fracture of tooth, sequela (Primary Dx) from Last 3 Months Social History Tobacco [...] 3:00 PM EDT Office Visit [facility] ADULT DENTAL [address] [place] [address] Nevaeh Joy Health Maintenance Due Date Last Done Comments Anal Pap 1973 CT Colonography 1973 Colonoscopy 1973 Colorectal Cancer Screening 1973 Depression Screening 1973 FIT DNA/Cologuard 1973 FIT 1973 FOBT 1973 HIV Screening 1973 Lipid Panel 1973 SDOH Screening 1973 Sigmoidoscopy 1973 Disability Screening 1973 Hepatitis B Vaccines (2 of 3 [...] 2023-2 5 season) 2024 Influenza Vaccine (#1) 2025 Dental X-Ray: Bitewings 07/27/2025 07/26/2024 Dental Oral [...] patient's age to complete this topic Meningococcal B Vaccine Aged Out No l onger eligible based on patient's age to complete [...] AM EDT Open fracture of tooth, sequela PROPHYLAXIS - ADULT Routine 01/31/2025 1 :00 PM EDT Dental calculus Dental plaque PERIODIC ORAL EVALUATION - ESTABLISHED PATIENT Routine 01/31/2025 1:00 PM EDT Dental calculus Dental plaque Encounter for dental examination INTRAORAL - COMPLETE SERIES OF RADIOGRAPHIC IMAGES Routine 07/26/2024 2:00 PM EDT from Last 3 Months or Most Recently Relevant to Health Maintenance Insurance [facility] MEDICAID STAND ADULT
== END 2025-06-06 12:10 | disposition home or self-care (01) ==
LOC: HO.HKAS 11:48
PROVIDERS: PCP Family Medicine; Visit Provider Internal Medicine Nephrology
DX: I10 Essential (primary) hypertension (principal)
CPT/HCPCS: 99214

== ENCOUNTER → 2025-06-06 11:48 | Outpatient (BNVA) | payer OTHER, SELFPAY | PROVIDERS: PCP Family Medicine; Visit Provider Internal Medicine Nephrology | DX: I10 Essential (primary) hypertension (principal); M10.9 Gout, unspecified; E78.5 Hyperlipidemia, unspecified | CPT/HCPCS: 99212 ==

== ENCOUNTER 2025-08-07 14:47 | Outpatient (REF) | payer OTHER, SELFPAY ==
--- OUTSIDE RECORDS SUMMARY | 2025-08-07 14:00 | XMS_ITS | Encounter Summary ---
Author Organization [facility] Address [address] [place] [address] [address] [place] [address] Care Team Providers Care Sanding Line Operator Name Role Phone Unavailable Primary Care Provider Unavailabl e Reason for Visit * Reason Comments Routine Cleaning Encounter Details Date Type Department Care Team (Late st Contact Info) Description 08/07/2025 2:00 PM EDT Office Visit [facility] ADULT DENTAL [address] [place], [place] [id number] Marcelina Powell [address] [place] [address] Dental plaque (Primary Dx); Abfraction; Gingival recession, localized; Missing teeth, acquired Social History Tobacco Use Types Packs/Day Years [...] Sign Reading Time Taken Comments Blood Pressure 138/82 08/07/2025 1:54 PM EDT Pulse - - Temperature - - Respiratory Rate - - Oxygen Saturation - - Inhaled Oxygen Concentration - - Weight - - Height - - Body Mass Index - - documented in this encounter Progress Notes * Marcelina Powell - 08/07/2025 2:00 PM EDT 2 pm appoint for prophpriti. Patient ID: Hay Driscoll is a 50 y.o. male. Time Out: No data recorded Location: [facility] Tooth: Maxilla and Mandible Procedure: Prophylaxis Verified the above with patient, assistant reading teacher, and provider. Confirmed via patient's chart, intraorally and by radiographs. Straddle Bug Operator: not applicable Medical Hx: Vitals: Blood pressure 138/82. Medications, Med Hx reviewed with patient and updated in chart. Treatment Provided Dental procedures in this visit D1110 - PROPHYLAXIS - ADULT (Completed) Service provider: Marcelina Powell Billing provider: Meri Choudhury DDS [id number] - CASE PRESENTATION, DETAILED AND EXTENSIVE TREATMENT PLANNING (Completed) Service provider: Marcelina Powell Billing provider: Meri Choudhury DDS Instruments Used: Ultrasonic Scalers and Prophy angle Oral Cancer Screening: No lesions toru mandibularis Head/Neck Exam: No Lesions Calculus: Plaque: Light and Moderate Stain: Light Bleeding: Light Gingiva: pink [place]: Fair Perio Chart: Completed Oral hygiene instructions provided to patient including brushing technique and flossing. Recommendations: [place] two times daily, modified buitrago technique, Floss daily, Electric toothbrush, Soft bristle toothbrush, [place] Tongue, Anti-sensitivity toothpaste Recall Frequency: 6 mo NV: 6 months for x-rays, P. Exam, prophy. Hygienist: Marcelina Powell RDH * Meri Choudhury DDS - 08/07/2025 2:00 PM EDT I have reviewed the documentation and dental procedures made by the rendering provider, Marcelina Powell RDH, and approve their chart entries for this visit. Meri Choudhury DDS documented in this encounter Plan of Treatment Upcoming Encounters Date Type Department Care Team (Late st Contact Info) Description 08/30/2025 9:00 AM EDT Office Visit [facility] ADULT DENTAL [address] [place] [address] Meri Choudhury DDS [address] [place] [address] 02/05/2026 1:30 PM EDT Office Visit [facility] ADULT DENTAL [address] [place] [address] Marcelina Powell [address] [place] [address] Scheduled Orders Name Type Priority Associated Diagnoses Orde r Schedule PERIODIC ORAL EVALUATION - ESTABLISHED PATIENT Dental Routine 1 Occurren jonah starting 08/07/2025 BITEWINGS - 4 RADIOGRAPHIC IMAGES Dental Routine 1 Occurrence s starting 08/07/2025 INTRAORAL - PERIAPICAL FIRST RADIOGRAPHIC IMAGE Dental Routine 1 Occur rences starting 08/07/2025 INTRAORAL - PERIAPICAL EACH ADDITIONAL RADIOGRAPHIC IMAGE Dental Routine 1 Occurrences starting 08/07/2025 PROPHYLAXIS - ADULT Dental Routine 1 Occ urrences starting 08/07/2025 CASE PRESENTATION, DETAILED AND EXTENSIVE TREATMENT PLANNING Dental Routine 1 Occurrences starting 08/07/2025 documented as of this encounter Procedures Procedure Name Priority Date/Time Associated Diagnosis Comments PROPHYLAXIS - ADULT Routine 08/07/2025 2 :00 PM EDT Dental plaque CASE PRESENTATION, DETAILED AND EXTENSIVE TREATMENT PLANNING Routine 08/07/2025 2:00 PM EDT Dental plaque Abfraction Gingival recession, localized documented in this encounter Visit Diagnoses Diagnosis Dental plaque- Primary Accretions on teeth Abfraction Gingival recession, localized Missing teeth, acquired documented in this encounter
--- OUTSIDE RECORDS SUMMARY | 2025-08-07 16:42 | XMS_ITS | Clinical Summary ---
Author Organization [employer] Address [address] [facility] [address] [place] [address] Care Team Providers Care Rn Lpn Lvn Name Role Phone Unavailable Primary Care Provider Unavailabl e Allergies Active Allergy Reactions Criticality Noted Date Comments Penicillin G Hives 04/18/2024 Medications acetaminophen (Tylenol) 500 MG tablet Take 1 tablet (500 mg) by mouth every 6 (six) hours if needed for mild pain for up to 20 doses. 20 tablet Active Additional Information Patient not taking.Reported on 08/07/2025 ibuprofen 600 MG tablet Take 1 tablet (600 mg) by mouth every 6 (six) hours if needed for mild pain for up to 20 doses. 20 tablet Active amLODIPine (Norvasc) 10 MG tablet Take [...] Encounters Date Type Department Care Team Description 08/07/2025 2:00 PM EDT Office Visit [facility] ADULT DENTAL [address] [place] [address] Marcelina Powell Dental plaque (Primary Dx); Abfraction; Gingival recession, localized; Missing teeth, acquired 07/17/2025 Telephone [facility] ADULT DENTAL [address] [place], [place] [phone] Marcelina Powell from Last 3 Months Social History Tobacco [...] Pressure 138/82 08/07/2025 1:54 PM EDT Pulse 76 05/09/2024 8:28 AM EDT Temperature - - Respiratory Rate - - Oxygen Saturation - - Inhaled Oxygen Concentration - - Weight - - Height - - Body Mass Index - - Plan of Treatment Upcoming Encounters Date Type Department Care Team (Late st Contact Info) Description 08/30/2025 9:00 AM EDT Office Visit [facility] ADULT DENTAL [address] [place] [address] Moore-Cole, Meri, DDS [address] [place] [address] 02/05/2026 1:30 PM EDT Office Visit [facility] ADULT DENTAL [address] [place] [address] Andre, Marcelina [address] [place] [address] Health Maintenance Due Date Last Done Comments [...] COVID-19 Vaccine (1 - 2023-2 5 season) 2025 Influenza Vaccine (#1) 2025 Dental X-Ray: Bitewings 07/27/2025 07/26/2024 Dental Oral Exam 08/04/2025 01/31/2025, 07/26/2024 Dental Prophylaxis 02/05/2026 08/07/2025, 01/31/2025, 07/26/2024 Tobacco Screening 08/07/2026 08/07/2025 Dental X-Ray: Full Mouth 07/27/2027 07/26/2024 RSV [...] EDT Dental plaque Abfraction Gingival recession, localized PROPHYLAXIS - ADULT Routine 08/07/2025 2 :00 PM EDT Dental plaque PERIODIC ORAL EVALUATION - ESTABLISHED PATIENT Routine 01/31/2025 1:00 PM EDT Dental calculus Dental plaque Encounter for dental examination INTRAORAL - COMPLETE SERIES OF RADIOGRAPHIC IMAGES Routine 07/26/2024 2:00 PM EDT from Last 3 Months or Most Recently Relevant to Health Maintenance Insurance [facility] MEDICAID STAND ADULT
[2025-08-07 16:43] LABS: Anion Gap 11 (12-20); Blood Urea Nitrogen 11 mg/dL (9-16); Carbon Dioxide 27 mmol/L (22-29); Chloride 106 mmol/L (96-108); Estimated Glomerular Filt Rate > 60; Potassium 4.0 mmol/L (3.3-5.1); Sodium 140 mmol/L (135-145)
== END 2025-08-07 14:48 | disposition home or self-care (01) ==
LOC: HO.HHCL 14:47
PROVIDERS: PCP Family Medicine; Visit Provider Internal Medicine Nephrology
DX: I10 Essential (primary) hypertension (principal)
CPT/HCPCS: 36415; 80051; 82565; 84520

== ENCOUNTER 2025-09-05 16:10 | Outpatient (AMB) | payer OTHER, SELFPAY ==
--- NOTE | 2025-09-05 16:25 | HO.NEPHOV_ITS ---
Vital Signs 09/05/25 16:26 Height 5 ft 7 in Weight 190 lb 8 oz BMI 29.8 BP 124/86 Blood Pressure Location Lt brachial Position Sitting Pulse 77 Pulse Source Pulse Oximeter Pulse Oximetry (%) 99 Oxygen Delivery Method Room Air Intake Visit Reasons: 3mon f/u w/labs-LVM Pest Control Service Technician Required: No Accompanied by: Self / Same As Patient Allergies Penicillins Allergy (Verified 09/05/25 16:27) Unknown HPI Comments Details: Hay was seen today in follow up for hypertension. He is known to have hypertension for well over 10 years. He has been on metoprolol for a while but his blood pressure remained uncontrolled and as a result hydrochlorothiazide was added. It did not make much of a difference needing increasing hydrochlorothiazide to 25 mg daily and addition of losartan 25 mg daily. His blood pressure continues to be over 150 to 160s systolic readings. His serum creatinine has been around 1.2-1.3. He had a 24 hour urine collection done in 2021 which revealed normal creatinine clearance. He has strong family history of hypertension. He denies using any cocaine. He does not have any coronary artery disease, congestive heart failure, carotid stenosis, CVA, PAD or RAFAELA. He has no history of retinopathy, proteinuria or left ventricular hypertrophy. He claims to be compliant with medication intake. He has not a smoker. He does not have any chest pain, headache, visual disturbances, shortness of breath, paroxysmal nocturnal dyspnea, orthopnea, pedal edema or urinary symptoms. He has no history of hypokalemia, uncontrolled thyroid disorders, obstructive sleep apnea, renal function abnormality, hypercalcemia. His weight has been stable. He has dyslipidemia and is on statins. His BP is at goal [facility] Medical History (Updated 09/05/25 @ 16:40 by Reji Horner MD) Hypertension Colon polyps Elevated liver enzymes Surgical History H/O colonoscopy Social History Alcohol intake: current Patient Tobacco Use Status: Never used Tobacco Review of Systems Const All systems reviewed & are unremarkable except as noted in HPI and below Physical Exam Vital Signs: Last Vital Signs Pulse 77 09/05/25 16:26 BP 124/86 09/05/25 16:26 Pulse Ox 99 09/05/25 16:26 Oxygen Delivery Method Room Air 09/05/25 16:26 BMI result Body Mass Index 29.8 Const General: comfortable and no acute distress Orientation/consciousness: patient oriented x3 HEENT Head: Yes normocephalic Mouth: Normal oral and palatal mucosa present Eyes EOM: EOMs intact bilaterally Neck Neck: Yes supple Resp Auscultation: clear to auscultation bilaterally Cardio Jugular venous distension: no JVD Rate: regular rate GI Palpation (GI): Soft to palpation Auscultation: normal bowel sounds General: Yes no CVA tenderness Back/Spine/Pelvis Back: no CVA tenderness Skin General skin exam: no rashes or lesions noted Neuro General: patient oriented x3 and moves all extremities Extrem General: Yes no pedal edema Results Reviewed Nephrology Results: Sodium, (135-145) 140 mmol/L 08/07/25 Potassium, (3.3-5.1) 4.0 mmol/L 08/07/25 Chloride, (96-108) 106 mmol/L 08/07/25 Carbon Dioxide, (22-29) 27 mmol/L 08/07/25 BUN, (9-16) 11 mg/dL 08/07/25 Creatinine, (0.5-1.4) 1.26 mg/dL 08/07/25 Renal US 06/03/24 Assessment & Plan Assessment & Plan (1) Hypertension: Code(s): I10 - Essential (primary) hypertension Category: Medical Qualifiers: Hypertension type: primary hypertension Qualified Code(s): I10 - Essen tial (primary) hypertension (2) Dyslipidemia: Code(s): E78.5 - Hyperlipidemia, unspecified Category: Medical Plan Hay most likely has primary hypertension. His blood pressure is well controlled now on current medications. Whether his fluctuant serum creatinine is due to increase in muscle mass along with hemodynamic MALINI when losartan has been increased needs to be determined. ( At baseline his serum creatinine has been between 1.2-1.3 with a normal creatinine clearance). Doppler of renal arteries were normal. He should remain well hydrated. I encouraged him not to have excessive nonsteroidal anti-inflammatories while being on angiotensin receptor mckenzie. F/U given Orders: Orders Creatinine 8 Months I10 - Essential (primary) hypertension Electrolytes 8 Months I10 - Essential (primary) hypertension Protein Creatinine Ratio, Ur 8 Months I10 - Essential (primary) hypertension Aspartate Amino Transferase 8 Months E78.5 - Hyperlipidemia, unspecified Alanine Aminotransferase 8 Months E78.5 - Hyperlipidemia, unspecified Blood Urea Nitrogen 8 Months I10 - Essential (primary) hypertension Medications: New rosuvastatin 20 mg PO BEDTIME 90 tabs 3RF Changed From losartan 75 mg (1.5 x 50 mg) PO DAILY 90 days 135 tabs 4RF To losartan 100 mg (2 x 50 mg) PO DAILY 180 tabs 4RF 90 days Coding Level of Care Code Est Pt Level 4 (12385) Diagnoses Primary hypertension I10 Hypertension type: primary hypertension Dyslipidemia E78.5
[2025-09-05 16:26] VITALS: BP 124/86; PULSE 77; O2SAT 99; BMI 29.8
--- OUTSIDE RECORDS SUMMARY | 2025-09-05 20:07 | XMS_ITS | Encounter Summary ---
Author Organization [facility] Address [address] [place] [address] Phone Care Team Providers Care Condenser Setter Name Role Phone Kadeem Mendoza DO Primary Care Provider [phone] Encounter Details Date Type Department Care Team (Late st Contact Info) Description 06/30/2022 Documentation Only [facility] [address] [place] [address] Julio Barnes MD Social History [...] on filedocumented in this encounter Care Teams Condenser Setter Relationship Specialty Start Date End Date Kadeem Mendoza DO [address] [place] [address] PCP - General Family Medicine 01/01/24 documented as of this encounter
--- OUTSIDE RECORDS SUMMARY | 2025-09-05 20:07 | XMS_ITS | Clinical Summary ---
Author Organization [facility] Address [address] [facility] [address] [place] [address] Phone Care Team Providers Care Datapower Developer Name Role Phone Mendoza, Gary Dasia BANGURA Primary Care Provider [phone] Allergies Active Allergy Reactions Criticality Noted Date [...] of 3 - 19+ 3-dose series) 04/24 Colorectal Cancer Screening: Annual FOBT 2022 Colorectal Cancer Screening: Colonoscopy 2022 Colorectal Cancer Screening: Sigmoidoscopy 2022 Pneumococcal Vaccine: 50+ Years (1 of 1 - PCV) 023 Influenza Vaccine (#1) 2025 Insurance [facility] Medicaid [facility] Medicaid Care Teams Datapower Developer Relationship Specialty Start Date End Date Kadeem Mendoza DO [address] [place] [address] PCP - General Family Medicine 01/01/24
--- OUTSIDE RECORDS SUMMARY | 2025-09-05 20:07 | XMS_ITS | Clinical Summary ---
Author Organization [employer] Address [address] [facility] [address] [place] [address] Care Team Providers Care Svp Digital Sales Food & Cooking Name Role Phone Unavailable Primary Care Provider Unavailabl e Allergies Active Allergy Reactions Criticality Noted Date Comments Penicillin G Hives 06/04/2022 Medications acetaminophen (Tylenol) 500 MG tablet Take [...] 1 tablet by mouth Once per day. 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 Non-restorable tooth 04/18/2024 Encounters Date Type Department Care Team Description 08/30/2025 9:00 AM EDT Office Visit [facility] ADULT DENTAL [address] [place] [address] Moore-Cole, Meri, DDS Missing teeth, acquired (Primary Dx) 08/29/2025 Travel 08/07/2025 2:00 PM EDT Office Visit [facility] ADULT DENTAL [address] [place] [address] Marcelina Powell Dental plaque (Primary Dx); Abfraction; Gingival recession, localized; Missing teeth, acquired 07/17/2025 Telephone [facility] ADULT DENT[facility] [address] [place] [address] Marcelina Powell from Last 3 Months Social [...] Care Team (Late st Contact Info) Description 09/11/2025 9:30 AM EST Office Visit [facility] ADULT DENTAL [address] [place] [address] Meri Choudhury, DDS [address] [place] [address] 02/05/2026 1:30 PM EDT Office Visit [facility] ADULT DENTAL [address] [place] [address] Marcelina Powell [address] [place] [address] Health Maintenance Due Date Last Done Comments [...] Prophylaxis 02/05/2026 08/07/2025, 01/31/2025, 07/26/2024 Tobacco Screening 08/30/2026 08/30/2025 Dental X-Ray: Full Mouth 07/27/2027 07/26/2024 RSV [...] Procedure Name Priority Date/Time Associated Diagnosis Comments DENTURE IMPRESSION Routine 08/30/2025 9: 00 AM EDT Missing teeth, acquired CASE PRESENTATION, DETAILED AND EXTENSIVE TREATMENT PLANNING [...] Most Recently Relevant to Health Maintenance Insurance [facility] MEDICAID STAND ADULT
== END 2025-09-05 16:52 | disposition home or self-care (01) ==
LOC: HO.HKAS 16:10
PROVIDERS: PCP Family Medicine; Visit Provider Internal Medicine Nephrology
DX: I10 Essential (primary) hypertension (principal); E78.5 Hyperlipidemia, unspecified
CPT/HCPCS: 99214

== ENCOUNTER → 2025-09-05 16:10 | Outpatient (BNVA) | payer SELFPAY | PROVIDERS: PCP Family Medicine; Visit Provider Internal Medicine Nephrology | DX: I10 Essential (primary) hypertension (principal); E78.5 Hyperlipidemia, unspecified | CPT/HCPCS: 99212 ==